=== PATIENT | female | born 1995 | race Caucasian/White ===

== ENCOUNTER 2018-12-17 06:12 | Emergency (ER) | payer BC ==
--- NOTE | 2018-12-17 06:53 | EDM.PDOC ---
ED HPI GENERAL MEDICAL PROBLEM - General Chief Complaint: Cardiovascular Problem Stated Complaint: HEART RACING Time Seen by Provider: 12/17/18 06:23 Source of Information: Reports: Patient, Family History Limitations: Reports: No Limitations - History of Present Illness INITIAL COMMENTS - FREE TEXT/NARRATIVE: Is a 23-year-old female. She awoke early this morning to let her dogs outside and noted that her heart was kind of racing slightly or at least felt like he was palpating. She apparently fell asleep and then suddenly woke up and then she noted her heart was really fluttering in her chest and it was racing and she got rather anxious. She lives right next door to her parents so she went over to her parents house and her mother brought her to the ER for evaluation. The patient apparently moved back here from [place] and she is going to be getting in April. The mother states she has been a little anxious lately they've noticed. She's had some episodes of dizziness that may or may not be associated with this fluttering feeling in her chest. She seen a local physician whose done lab work and EKG and the only thing they found according to the patient was she had a slightly low potassium. Right now she feels much better her heart rates in the 90s and she denies at fluttering feeling. No recent cough congestion fever chills she denies any illicit drug use. They did increase her citalopram to 40 mg recently from the 20 mg that she had been on. She is only been on the 40 mg dose for the last 3 days. - Related Data Allergies Allergy/AdvReac Type Severity Reaction Status Date / Time amoxicillin [From Augmentin] Allergy Rash Verified 12/17/18 06:25 clavulanic acid Allergy Rash Verified 12/17/18 06:25 [From Augmentin] Sulfa (Sulfonamide Allergy Rash Verified 12/17/18 06:25 Antibiotics) sulfamethoxazole Allergy Rash Verified 12/17/18 06:25 [From Bactrim] trimethoprim [From Bactrim] Allergy Rash Verified 12/17/18 06:25 Home Meds: Home Meds Control 12/17/18 [History] Citalopram [Citalopram HBr] 40 mg PO BEDTIME 12/17/18 [History] LORazepam [Ativan] 0.5 mg PO Q6H PRN #6 tablet 12/17/18 [Rx] Omeprazole Magnesium [Prilosec Otc] 20 mg PO DAILY 12/17/18 [History] Potassium Bicarbonate/Cit Ac [K Effervescent] 25 meq PO QAM #5 tablet.eff [Rx] lamoTRIgine [Lamictal XR] 300 mg PO DAILY 12/17/18 [History] Past Medical History HEENT History: Reports: Impaired Vision Cardiovascular History: Reports: Other (See Below) Other Cardiovascular History: tachycardia Musculoskeletal History: Reports: Other (See Below) Other Musculoskeletal History: toes Neurological History: Reports: Seizure Endocrine/Metabolic History: Reports: Obesity/BMI 30+ - Infectious Disease History Infectious Disease History: Reports: Chicken Pox - Past Surgical History HEENT Surgical History: Reports: Adenoidectomy, Myringotomy w Tube(s) Social & Family History - Tobacco Use Smoking Status *Q: Former Smoker Used Tobacco, but Quit: Yes Month/Year Tobacco Last Used: 2017 - Caffeine Use Caffeine Use: Reports: Coffee - Recreational Drug Use Recreational Drug Use: No ED ROS GENERAL - Review of Systems Review Of Systems: See Below Constitutional: Denies: Fever, Chills HEENT: Reports: No Symptoms Respiratory: Reports: Shortness of Breath. Denies: Wheezing, Cough Cardiovascular: Denies: Chest Pain Endocrine: Reports: No Symptoms GI/Abdominal: Denies: Nausea, Vomiting : Reports: No Symptoms Musculoskeletal: Reports: No Symptoms Skin: Reports: No Symptoms Neurological: Reports: Dizziness Psychiatric: Reports: Anxiety Hematologic/Lymphatic: Reports: No Symptoms ED EXAM, GENERAL - Physical Exam Exam: See Below Exam Limited By: No Limitations General Appearance: Alert, WD/WN, No Apparent Distress Eye Exam: Bilateral Eye: Normal Inspection Ears: Normal External Exam Nose: Normal Inspection Throat/Mouth: Normal Inspection, Normal Lips, Normal Voice, No Airway Compromise Head: Normocephalic Neck: Supple Respiratory/Chest: No Respiratory Distress, Lungs Clear, Normal Breath Sounds Cardiovascular: Regular Rate, Rhythm, No Murmur GI/Abdominal: Soft Back Exam: Normal Inspection, Full Range of Motion Extremities: Normal Inspection, Normal Range of Motion Neurological: Alert, Oriented Psychiatric: Normal Affect, Normal Mood, Other (She really does not appear to be anxious at this time though the mother states she was while they were coming into the ER) Skin Exam: Warm, Dry EKG INTERPRETATION EKG Date: 12/17/18 Time: 06:25 EKG Interpretation Comments: EKG shows a normal sinus rhythm rate of 95. There are no acute ST or T-wave changes and no ischemia noted. Course - Vital Signs Last Recorded V/S: Last Vital Signs Temp 98.7 F 12/17/18 06:20 Pulse 116 H 12/17/18 06:20 Resp 15 12/17/18 06:20 BP 133/84 12/17/18 06:20 Pulse Ox 100 12/17/18 06:20 - Orders/Labs/Meds Orders: Active Orders 24 hr Category Date Time Status EKG 12 Lead [EKG Documentation Completion] [RC] STAT Care 12/17/18 06:40 Active Labs: Laboratory Tests 12/17/18 12/17/18 Range/Units 06:47 06:47 WBC 7.75 (3.98-10.04) K/mm3 RBC 4.76 (3.98-5.22) M/mm3 Hgb 14.0 (11.2-15.7) gm/L Hct 42.0 (34.1-44.9) % MCV 88.2 (79.4-94.8) fl MCH 29.4 (25.6-32.2) pg MCHC 33.3 (32.2-35.5) g/dl RDW Std Deviation 39.9 (36.4-46.3) fL Plt Count 370 H (182-369) K/mm3 MPV 8.9 L (9.4-12.3) fl Neut % (Auto) 55.7 (34.0-71.1) % Lymph % (Auto) 31.9 (19.3-51.7) % [place] % (Auto) 10.5 (4.7-12.5) % Eos % (Auto) 1.4 (0.7-5.8) Baso % (Auto) 0.4 (0.1-1.2) % Neut # (Auto) 4.32 (1.56-6.13) K/mm3 Lymph # (Auto) 2.47 (1.18-3.74) K/mm3 [place] # (Auto) 0.81 H (0.24-0.36) K/mm3 Eos # (Auto) 0.11 (0.04-0.36) K/mm3 Baso # (Auto) 0.03 (0.01-0.08) K/mm3 Sodium 139 (136-145) mEq/L Potassium 3.2 L (3.5-5.1) mEq/L Chloride 104 (98-107) mEq/L Carbon Dioxide 23 (21-32) mEq/L Anion Gap 15.2 H (5-15) BUN 9 (7-18) mg/dL Creatinine 0.8 (0.55-1.02) mg/dL Est Cr Clr Drug Dosing 90.47 mL/min Estimated GFR (MDRD) > 60 (>60) mL/min BUN/Creatinine Ratio 11.3 L (14-18) Glucose 108 H (74-106) mg/dL Calcium 9.1 (8.5-10.1) mg/dL Magnesium 2.1 (1.8-2.4) mg/dl Total Bilirubin 0.2 (0.2-1.0) mg/dL AST 20 (15-37) U/L ALT 39 (14-59) U/L Alkaline Phosphatase 77 (46-116) U/L Total Protein 7.7 (6.4-8.2) g/dl Albumin 3.9 (3.4-5.0) g/dl Globulin 3.8 gm/dL Albumin/Globulin Ratio 1.0 (1-2) - Re-Assessments/Exams Free Text/Narrative Re-Assessment/Exam: 12/17/18 07:20 The patient gets up to walk to the bathroom her heart rate goes up to about 120 within the sooner she lies down it goes back down in the 90s. She did have an episode of dizziness while lying down and her heart rate went up to about 112 but then it came back down again and the dizziness resolved. When she describes dizziness as more like a lightheadedness though she didn't feel any fluttering in her chest. I spoke to her about the Celexa that it normally does not have side effects suggesting dizziness anxiety or agitation however it can be a side effect and she needs to discuss this with her family doctor. She has been on Celexa 20 mg for some time and just recently increased to 40 mg but she was actually having these symptoms prior to increasing it to 40 mg. 12/17/18 07:22 I spoke to the patient and the mother regarding the potassium of 3.2. The rest of her lab work looked normal. Since her mother believes that she is having anxiety or possibly even panic attacks I will provide a very limited prescription of some Ativan until she can follow up with her family doctor and also provide 5 days worth of potassium supplement since she does not want to eat bananas or green leafy vegetables. 12/17/18 07:29 I spoke to the mother and the patient about the need to follow up for her seizure disorder even though I don't think she is having seizures that are causing these symptoms. She does not have any staring she does not have any lack of awareness when she has these dizzy spells and they're more lightheaded spells not actual room spinning. They did draw a level on her at her family doctors but they don't have that level back yet. I encouraged her to just take it easy today and rest and get the medications for the potassium and the Ativan. Departure - Departure Time of Disposition: 07:30 Disposition: Home, Self-Care 01 Condition: Good Clinical Impression: Palpitations, Anxiety, generalized Prescriptions: LORazepam [Ativan] 0.5 mg PO Q6H PRN #6 tablet PRN Reason: Anxiety Potassium Bicarbonate/Cit Ac [K Effervescent] 25 meq PO QAM #5 tablet.eff Referrals: PCP,None [Primary Care Provider] - Forms: ED Department Discharge, ED Return to Work/School Form Additional Instructions: Get the medications today, take the potassium one tablet every morning for the next 5 days, use the Ativan as needed for the feeling of anxiety, rest and sleep as much as possible today, follow-up with your family doctor this coming week for recheck, return to the ER if your symptoms worsen markedly. - My Orders Last 24 Hours: My Active Orders 12/17/18 06:40 EKG 12 Lead [EKG Documentation Completion] [RC] STAT - Assessment/Plan Last 24 Hours: My Active Orders 12/17/18 06:40 EKG 12 Lead [EKG Documentation Completion] [RC] STAT
== END 2018-12-17 07:50 | disposition home or self-care (01) ==
LOC: JD.ED 06:12
DX: R00.2 Palpitations (principal); F41.1 Generalized anxiety disorder; E66.9 Obesity, unspecified; Z88.1 Allergy status to other antibiotic agents; Z88.8 Allergy status to other drugs, medicaments and biological substances; Z88.2 Allergy status to sulfonamides; Z79.899 Other long term (current) drug therapy; Z87.891 Personal history of nicotine dependence
CPT/HCPCS: 36415; 80053; 83735; 85025; 93005; 99283; 99285-25

== ENCOUNTER 2023-03-29 12:33 | Inpatient (IN) | payer BC ==
[2023-03-29] MEDS ORDERED: Sodium Chloride 0.9% 10 ML Syringe FLUSH PRN (13:54)
[2023-03-29 14:32] LABS: HEMOGLOBIN 11.2 gm/dl (11.2-15.7); MEAN CORPUSCULAR HEMOGLOBIN 27.1 pg (25.6-32.2); MEAN CORPUSCULAR VOLUME 84.7 fl (79.4-94.8); PLATELET COUNT,PLT 326 K/mm3 (182-369); RED BLOOD CELL COUNT 4.13 M/mm3 (3.98-5.22); WHITE BLOOD CELL COUNT,WBC 9.19 K/mm3 (3.98-10.04)
[2023-03-29] MEDS ORDERED: Diphtheria,Pertussis(Acell),Tetanus Vaccine 0.5 ML Syringe IM ONE (14:59)
[2023-03-29 15:10] LABS: A/G RATIO 0.5 (1-2); ALBUMIN 2.5 g/dl (3.4-5.0); BILIRUBIN TOTAL 0.2 mg/dL (0.2-1.0); CALCIUM 8.7 mg/dL (8.5-10.1); CREATININE 0.6 mg/dL (0.55-1.02); EST CRCL DRUG DOSING (CG) 115.47 mL/min; PROTEIN TOTAL,TP 7.5 g/dl (6.4-8.2)
[2023-03-29] MEDS: Misoprostol 25 MCG (1/4 of 100 MCG) Tab VAG SCH ×2 (16:13→20:03)
[2023-03-29] MEDS ORDERED: fentaNYL 100 MCG/2 ML SDV EPIDUR PRN (17:54)
[2023-03-29] MEDS ORDERED: Bupivacaine/fentaNYL/NS 100 ML Bag EPIDUR PRN (17:54)
[2023-03-29] MEDS ORDERED: ePHEDrine 50 MG/ML SDV IVPUSH PRN (17:54)
[2023-03-29] MEDS ORDERED: diphenhydrAMINE 50 MG/ML SDV IVPUSH PRN (17:54)
[2023-03-29 19:51] LABS: CREATININE,URINE RAND 81.2 mg/dL (30.0-125.0); PROTEIN CREATININE RATIO,URINE 357.1 mg/g (0-149)
[2023-03-30] MEDS: Misoprostol 25 MCG (1/4 of 100 MCG) Tab VAG SCH (00:07)
[2023-03-30] MEDS: Acetaminophen 325 MG Tab PO PRN ×2 (03:49→10:13)
[2023-03-30] MEDS ORDERED: Misoprostol 25 MCG (1/4 of 100 MCG) Tab VAG ONE (04:28)
[2023-03-30] MEDS: Lactated Ringers 1,000 ML IV SCH ×2 (12:26→22:35)
[2023-03-30] MEDS: Oxytocin/Lactated Ringers 10 UNIT/1,000 ML BAG IV SCH (12:30)
[2023-03-30] MEDS: Sodium Chloride 0.9% 10 ML Syringe FLUSH SCH (21:10)
[2023-03-31] MEDS: Lactated Ringers 1,000 ML IV SCH ×2 (00:24→04:13)
[2023-03-31] MEDS ORDERED: Ropivacaine 200 MG in Premix Bag 1 BAG EPIDUR SCH (04:45)
[2023-03-31] MEDS ORDERED: Tranexamic Acid 1,000 MG/10 ML Vial ONE (05:42)
[2023-03-31] MEDS ORDERED: Benzocaine/Menthol 20%-0.5% Spray 78 GM Cannister TOP PRN (06:44)
[2023-03-31] MEDS ORDERED: Witch Hazel Medicated Pads 40/Jar TOP PRN (06:44)
[2023-03-31] MEDS ORDERED: Ibuprofen 800 MG Tab PO PRN (06:44)
[2023-03-31] MEDS: Oxytocin/Lactated Ringers 10 UNIT/1,000 ML BAG IV SCH (06:50)
[2023-03-31] MEDS: Sodium Chloride 0.9% 10 ML Syringe FLUSH SCH ×2 (22:14→22:25)
[2023-04-01] MEDS ORDERED: Diphtheria,Pertussis(Acell),Tetanus Vaccine 0.5 ML Syringe IM ONE (09:00)
[2023-04-02] MEDS ORDERED: Diphtheria,Pertussis(Acell),Tetanus Vaccine 0.5 ML Syringe IM ONE (09:00)
== END 2023-04-02 10:25 | disposition home or self-care (01) | DRG 560 ==
LOC: JD.OBCHECK 12:33 → JD.OB 12:36 → JD.OBCHECK 13:56 → JD.OB 16:08 → OBSVTOIN 03-31 05:49 → JD.OB 03-31 05:50
PROVIDERS: ADMIT Family Medicine; ATTEND Family Medicine
PROC: 10E0XZZ Delivery of Products of Conception, External Approach (ICD-10-PCS; principal; 2023-03-31)
PROC: 0HQ9XZZ Repair Perineum Skin, External Approach (ICD-10-PCS; 2023-03-31)
PROC: 3E0P7VZ Introduction of Hormone into Female Reproductive, Via Natural or Artificial Opening (ICD-10-PCS; 2023-03-31)
PROC: 10H07YZ Insertion of Other Device into Products of Conception, Via Natural or Artificial Opening (ICD-10-PCS; 2023-03-31)
PROC: 3E0234Z Introduction of Serum, Toxoid and Vaccine into Muscle, Percutaneous Approach (ICD-10-PCS; 2023-03-31)
DX: O14.04 Mild to moderate pre-eclampsia, complicating childbirth (principal); Z37.0 Single live birth; O99.214 Obesity complicating childbirth; O70.0 First degree perineal laceration during delivery; O69.81X0 Labor and delivery complicated by cord around neck, without compression, not applicable or unspecified; Z87.891 Personal history of nicotine dependence; O26.893 Other specified pregnancy related conditions, third trimester; Z67.11 Type A blood, Rh negative; Z3A.37 37 weeks gestation of pregnancy; Z88.0 Allergy status to penicillin; Z88.2 Allergy status to sulfonamides
CPT/HCPCS: 36415; 51702; 59025; 59409; 80053; 82570; 84156; 85027; 85461; 86762; 86850; 86900; 86901; A9270-GY; C1726; J2590; J2790; J3490; J7120